=== PATIENT | female | born 1985 | race Caucasian/White ===

== ENCOUNTER 2020-06-15 18:31 | Emergency (ER) | payer OTHER ==
[2020-06-15 18:40] VITALS: RESP 18; TEMP 98.1
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
[2020-06-15] MEDS ORDERED: KETOROLAC 15 MG/ML 1 ML VIAL IM STA (19:24)
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
[2020-06-15 21:13] VITALS: BP 125/79; PULSE 71
== END 2020-06-15 21:13 | disposition home or self-care (01) ==
LOC: EC 18:31
DX: S69.91XA Unspecified injury of right wrist, hand and finger(s), initial encounter (principal); F17.200 Nicotine dependence, unspecified, uncomplicated; Z85.6 Personal history of leukemia; W45.8XXA Other foreign body or object entering through skin, initial encounter
CPT/HCPCS: 73130; 99283; 96372; J1885